=== PATIENT | female | born 1950 | race Caucasian/White ===

== ENCOUNTER → 2017-01-23 | Outpatient (CLI) | payer MEDICARE, BC ==
[~2017-01-23] MED LIST: ASPIRIN E.C. 8181 MG PO; CITALOPRAM10 MG PO; MULTIPLE VITAMI1 CAP PO; PREMPRO 0.625 M1 TAB PO
== END ==
LOC: MC.RAD 09:20
DX: Z12.31 Encounter for screening mammogram for malignant neoplasm of breast (principal)

== ENCOUNTER → 2018-01-22 | Outpatient (CLI) | payer MEDICARE, BC | LOC: MC.RAD 09:20 | DX: Z12.31 Encounter for screening mammogram for malignant neoplasm of breast (principal) ==

== ENCOUNTER → 2019-01-15 | Outpatient (CLI) | payer MEDICARE, BC | LOC: COL.RAD 14:54 | DX: R10.11 Right upper quadrant pain (principal); R63.4 Abnormal weight loss ==

== ENCOUNTER → 2019-02-13 | Outpatient (CLI) | payer MEDICARE, BC | LOC: COL.RAD 07:51 | DX: J18.1 Lobar pneumonia, unspecified organism (principal); R91.1 Solitary pulmonary nodule; R10.11 Right upper quadrant pain | CPT/HCPCS: Q9967 ==

== ENCOUNTER → 2019-03-18 | Outpatient (CLI) | payer MEDICARE, BC ==
[2019-03-18 13:10] LABS: ARTERIAL BLD GAS O2 SATURATION 94.9 % (92-100); ARTERIAL BLOOD GAS BASE EXCESS 1.9 (-2-2); ARTERIAL BLOOD GAS HCO3 26.6 meq/L (22-26); ARTERIAL BLOOD GAS PCO2 41.6 mmHg (35-45); ARTERIAL BLOOD GAS PO2 77.7 mmHg (80-100); ARTERIAL BLOOD GAS pH 7.42 (7.35-7.45)
== END ==
LOC: COL.LAB 12:29
PROVIDERS: Family Medicine
DX: J98.4 Other disorders of lung (principal)

== ENCOUNTER → 2019-03-25 | Outpatient (CLI) | payer MEDICARE, BC | LOC: COL.PUL 12:09 | DX: J98.4 Other disorders of lung (principal) ==

== ENCOUNTER 2019-04-08 11:13 | Emergency (ER) | payer MEDICARE, BC ==
[~2019-04-08] VITALS: Ht 167.6 cm; Wt 48.6 kg
[2019-04-08 11:20] VITALS: BP 116/59; TEMP 97.5
[2019-04-08 12:14] LABS: ALANINE AMINOTRANSFERASE 23 U/L (9-52); ALBUMIN 4.1 gm/dL (3.5-5.0); ALKALINE PHOSPHATASE 121 U/L (50-136); ANION GAP 9 mmol/L (7-16); AST,SGOT 42 U/L (15-37); BILIRUBIN,TOTAL 0.7 mg/dL (0.0-1.0); BLOOD UREA NITROGEN 20 mg/dL (7-17); CARBON DIOXIDE 28 mmol/L (22-30); CHLORIDE 107 mmol/L (98-107); CREATININE, serum 0.81 (0.52-1.25); GLUCOSE 86 mg/dL (74-106); POTASSIUM 3.9 mmol/L (3.4-5.0); SODIUM 143 mmol/L (137-145); TOTAL PROTEIN 7.2 gm/dL (6.4-8.2)
[2019-04-08 12:19] LABS: BASO # 0.1 (0.0-0.2); BASO % 1.3 % (0.0-2.0); EOS # 0.2 (0.0-0.7); EOS % 3.4 % (0-4.0); GRAN # 3.3 (1.4-6.5); GRAN % 53.3 % (42.2-75.2); HEMATOCRIT 45.7 % (37.0-47.0); LYMPH # 2.1 (1.2-3.4); LYMPH % 34.5 % (20.0-51.0); MEAN CELL VOLUME 96 fl (80.0-100.0); MEAN CORPUSCULAR HEMOGLOBIN 31 pg (27.0-31.0); MEAN CORPUSCULAR HGB CONC 33 g/dl (33.0-37.0); MEAN PLATELET VOLUME 10.1 fl (7.4-10.4); MONO # 0.4 (0.1-0.6); PLATELET COUNT 233 K/mm3 (130-400); RED BLOOD COUNT 4.77 M/mm3 (4.10-5.30); REDCELL DISTRIBUTION WIDTH-CV 12.4 % (11.5-14.5)
[2019-04-08 12:57] LABS: TROPONIN-I < 0.012 ng/mL (0.000-0.035)
[2019-04-08] MEDS ORDERED: ZOFRAN ODT4 MG PO (13:25)
[2019-04-08 13:40] VITALS: PULSE 66
[2019-04-08] MEDS ORDERED: FLONASE NASAL S16 GM NS (13:44)
[2019-04-08] MEDS ORDERED: STIOLTO RESPIMAT4 GM IH (13:47)
[2019-04-08] MEDS ORDERED: TYMLOS1.56 ML SQ (13:48)
== END 2019-04-08 13:40 | disposition home or self-care (01) ==
LOC: COL.ER 11:13
PROVIDERS: Emergency Medicine
DX: S06.0X0A Concussion without loss of consciousness, initial encounter (principal); R40.2410 Glasgow coma scale score 13-15, unspecified time; F17.210 Nicotine dependence, cigarettes, uncomplicated; Z79.82 Long term (current) use of aspirin; W19.XXXA Unspecified fall, initial encounter; W22.8XXA Striking against or struck by other objects, initial encounter; Y92.009 Unspecified place in unspecified non-institutional (private) residence as the place of occurrence of the external cause
CPT/HCPCS: J7030

== ENCOUNTER → 2019-08-16 | Outpatient (CLI) | payer MEDICARE, BC ==
[~2019-08-16] MED LIST changes: +FLONASE NASAL S16 GM NS; +STIOLTO RESPIMAT4 GM IH; +TYMLOS1.56 ML SQ; +ZOFRAN 4MG T4 MG/TAB PO; +ZOFRAN ODT4 MG PO
== END ==
LOC: COL.RAD 10:00
DX: J18.9 Pneumonia, unspecified organism (principal); I77.819 Aortic ectasia, unspecified site
CPT/HCPCS: Q9967

== ENCOUNTER → 2019-12-09 | Outpatient (CLI) | payer MEDICARE, BC | LOC: MC.RAD 12:58 | DX: Z12.31 Encounter for screening mammogram for malignant neoplasm of breast (principal) ==

== ENCOUNTER → 2021-02-05 | Outpatient (CLI) | payer MEDICARE, BC | LOC: MC.RAD 14:00 | DX: Z12.31 Encounter for screening mammogram for malignant neoplasm of breast (principal); N64.89 Other specified disorders of breast ==

== ENCOUNTER → 2021-02-11 | Outpatient (CLI) | payer MEDICARE, BC | LOC: MC.RAD 07:40 | DX: N64.89 Other specified disorders of breast (principal) ==

== ENCOUNTER → 2021-09-01 | Outpatient (CLI) | payer MEDICARE, BC | LOC: MC.RAD 14:00 | DX: R92.8 Other abnormal and inconclusive findings on diagnostic imaging of breast (principal); N64.89 Other specified disorders of breast ==

== ENCOUNTER 2022-01-24 12:50 | Outpatient (CLI) | payer MEDICARE, BC ==
[~2022-01-24] VITALS: Ht 167.6 cm; Wt 58.9 kg
[2022-01-24 13:22] VITALS: BP 110/52; PULSE 66; TEMP 97.5
[2022-01-24] MEDS ORDERED: KLONOPIN 0.5MG0.5 MG PO (13:26)
[2022-01-24] MEDS ORDERED: BREZTRI AEROS10.7 GM IH (13:26)
[2022-01-24] MEDS ORDERED: BELSOMRA15 MG PO (13:27)
[2022-01-24] MEDS ORDERED: ZITHROMAX 250M250 MG PO (13:27)
[2022-01-24] MEDS ORDERED: SINGULAIR 110 MG/TAB PO (13:28)
[2022-01-24] MEDS ORDERED: MASON NATURAL2000 IU PO (13:30)
[2022-01-24] MEDS ORDERED: PRENATAL FORMU1 EAC3 PO (13:30)
[2022-01-24] MEDS ORDERED: SSKI1 GM/ML PO (13:31)
[2022-01-24] MEDS ORDERED: MAGNESIUM200 MG PO (13:33)
[2022-01-24] MEDS ORDERED: [UNRECOGNIZED DRUG - SUPPLY] (13:33)
== END 2022-01-24 15:15 | disposition home or self-care (01) ==
LOC: EUO 12:50
DX: J44.9 Chronic obstructive pulmonary disease, unspecified (principal)
CPT/HCPCS: J2357

== ENCOUNTER 2022-02-04 13:36 | Inpatient (IN) | payer MEDICARE, BC ==
[~2022-02-04] VITALS: Ht 167.6 cm; Wt 58.4 kg
[~2022-02-04 13:36] MED LIST changes: +BELSOMRA15 MG PO; +BREZTRI AEROS10.7 GM IH; +KLONOPIN 0.5MG0.5 MG PO; +MAGNESIUM200 MG PO; +MASON NATURAL2000 IU PO; +PRENATAL FORMU1 EAC3 PO; +SINGULAIR 110 MG/TAB PO; +SSKI1 GM/ML PO; +ZITHROMAX 250M250 MG PO; +[UNRECOGNIZED DRUG - SUPPLY]
[2022-02-04 14:30] LABS: BASO # 0.1 K/mm3 (0.0-0.2); BASO % 1.5 % (0.0-2.0); EOS # 0.1 K/mm3 (0.0-0.7); EOS % 2.3 % (0.0-4.0); GRAN # 3.1 K/mm3 (1.4-6.5); GRAN % 60.3 % (42.2-75.2); LYMPH # 1.4 K/mm3 (1.2-3.4); LYMPH % 26.5 % (20.0-51.0); MEAN CELL VOLUME 101 fl (80.0-100.0); MEAN CORPUSCULAR HGB CONC 31 g/dl (33.0-37.0); MEAN PLATELET VOLUME 9.8 fl (7.4-10.4); MONO # 0.5 K/mm3 (0.1-0.6); PLATELET COUNT 342 K/mm3 (130-400); RED BLOOD COUNT 2.32 M/mm3 (4.10-5.30); REDCELL DISTRIBUTION WIDTH-CV 14.1 % (11.5-14.5)
[2022-02-04 14:31] LABS: HEMATOCRIT 23.4 % (37.0-47.0); HEMOGLOBIN 7.2 g/dl (12.5-16.0); MEAN CORPUSCULAR HEMOGLOBIN 31 pg (27-31)
[2022-02-04 15:18] LABS: ALBUMIN 3.7 gm/dL (3.4-4.8); BILIRUBIN,TOTAL 0.6 mg/dL (0.2-1.2); CREATININE, serum 0.8 mg/dL (0.57-1.11); POTASSIUM 4.1 mmol/L (3.5-4.5); TOTAL PROTEIN 6.2 gm/dL (6.2-8.1)
[2022-02-04 17:13] LABS: RETIC # 0.12 M/mm3 (0.02-0.16); RETIC % 4.7 % (0.5-3.52)
[2022-02-04 21:03] VITALS: BP 102/41; PULSE 83; TEMP 97.9
[2022-02-04] MEDS ORDERED: XOLAIR150 MG/1 M SQ (21:09)
[2022-02-04 22:22] LABS: HEMATOCRIT 23.1 % (37.0-47.0)
[2022-02-04 23:31] VITALS: BP 96/40; PULSE 76; TEMP 97.9
[2022-02-04 23:46] VITALS: BP 104/40; PULSE 69; TEMP 98
[2022-02-05] VITALS (15 sets, daily range): BP systolic 90–116; BP diastolic 38–56; PULSE 58–94; TEMP 97.5–98.4
[2022-02-05 06:37] LABS: HEMATOCRIT 26.6 % (37.0-47.0)
--- NOTE | 2022-02-05 08:04 | NUR ---
PT RESTING IN BED. MORNING PO MEDICATIONS HELD. SHIFT ASSESSMENT COMPLETED. CONSENT SIGNED AND PLACED ON CHART. DENIES ANY PAIN AT THIS TIME. NS INFUSING AT 125ML/HR. PT NPO AT THIS TIME. PT STATES SHE HAS NOT HAD A BM SINCE YESTERDAY IN THE ER. UPDATED PT ON POC. WILL CONTINUE TO MONITOR.
--- NOTE | 2022-02-05 09:18 | NUR ---
PT ARRIVED TO THE MEDICAL FLOOR AROUND 2030HRS TO ROOM 316. PT A&O X 4; O2 RA; B/P SOFT WITH PT COMPLAININNG OF PAIN AT TOP OF HER HEAD, THAT SHE DESCRIBED TINGLING IN HER HEAD, THAT SHE FEELS BEFORE SHE PASSES OUT. HOSPITALIST CALLED. HOSPITALIST CAME TO BEDSIDE TO ASSESS PT AND SPEAK WITH HER. PT DESCRIBED HAVING TUNNEL VISION. HOSPITALIST ORDERED PT BE GIVEN TYLENOL AND A UNIT OF BLOOD. PT GIVEN TYLENOL AND UNIT OF BLOOD TRANSFERRED SLOWLY WITH PT EXPERIENCING NO ISSUES. HOWEVER, B/P'S REMAINED SOFT THROUGHOUT. PT DENIED CHEST PAIN, PALPITATIONS, SOB, N,V,D OR DIZZINESS. ADMISSIONS ASSESSMENT AND MED REC COMPLETE. PT ORIENTED TO ROOM AND HOSPITAL POLICY. POC DISCUSSED WITH PT. PT VERBALIZED UNDERSTANDING. ALL QUESTIONS AND CONCERNS ADDRESSED. PT EXPRESSED NO ADDITIONAL NEEDS AT THIS TIME. CALL LIGHT WITHIN REACH.
--- NOTE | 2022-02-05 13:01 | NUR ---
PT RETURNED TO UNIT. DROWSY AT THIS TIME, TOLERATING PO INTAKE. VSS. CONTINUING TO MONITOR.
--- NOTE | 2022-02-05 14:38 | NUR ---
hot tamale worker met with patient to discuss discharge plan. Patient reports that she lives at home with her Avery ([phone]). Patient states that he had foot surgery 10 days ago and is not able to ambulate at time. Patient reports to being fully independent with her ADL's and does not utilize any DME to assist with mobility. Patient does utilize 2L of [place] oxygen at night that is managed through [facility]. PCP is Dr. Hopkins and she utilizes [facility] for medications with no cost difficulty. Patient does have a DPOA-HC esbalished listing her [facility]. Patient does have a son named Dandy Manriquez [phone] who lives in [place] as well. Patient is planning on returning home once medically ready. Discharge plan: Home
[2022-02-06 03:59] VITALS: BP 119/46; PULSE 57; TEMP 98
--- NOTE | 2022-02-06 04:59 | NUR ---
ASSESSMENT COMPLETE FOR THIS SHIFT. PT RESTING IN BED NAPPING. PT DENIED PAIN, PALPITATIONS, SOB, N,V,D OR DIZZINESS. PT STATED SHE FELT MUCH BETTER. A LITTLE AFTER 0200HRS, PT COMPLAINED OF RESTLESS LEGS AND NOT BEING ABOUT TO REALLY GET TO SLEEP. I OFFERED PT MELATONIN AND TOLD HER, I COULD SEE IF [facility]SHIFT COULD TALK TO THE PHYSICIANS IN THE MORNING ABOUT WHAT MEDS PT MAY BE ABLE TO RESUME OR ADD. PT FELT THE MELATONIN WORKED WELL FOR HER. PT EXPRESSED NO OTHER NEEDS AT THIS TIME. CALL LIGHT WITHIN REACH.
[2022-02-06 06:54] LABS: BASO # 0.1 K/mm3 (0.0-0.2); EOS # 0.3 K/mm3 (0.0-0.7); EOS % 4.2 % (0.0-4.0); GRAN # 3.4 K/mm3 (1.4-6.5); GRAN % 54.9 % (42.2-75.2); LYMPH # 1.9 K/mm3 (1.2-3.4); MEAN CELL VOLUME 101 fl (80.0-100.0); MEAN CORPUSCULAR HGB CONC 29 g/dl (33.0-37.0); MEAN PLATELET VOLUME 10.1 fl (7.4-10.4); MONO # 0.5 K/mm3 (0.1-0.6); MONO % 8.6 % (1.7-9.3); PLATELET COUNT 303 K/mm3 (130-400); RED BLOOD COUNT 2.79 M/mm3 (4.10-5.30); REDCELL DISTRIBUTION WIDTH-CV 17.2 % (11.5-14.5)
[2022-02-06 07:00] LABS: CALCIUM 7.9 mg/dL (8.4-10.2); CREATININE, serum 0.73 mg/dL (0.57-1.11); POTASSIUM 3.7 mmol/L (3.5-4.5)
[2022-02-06 07:05] VITALS: BP 115/47; PULSE 68; TEMP 97.6
--- NOTE | 2022-02-06 07:07 | NUR ---
THE PATIENT IS STABLE AT THIS TIME. DENIES ANY NEEDS.
[2022-02-06 07:22] LABS: HEMATOCRIT 28.2 % (37.0-47.0); HEMOGLOBIN 8.3 g/dl (12.5-16.0); MEAN CORPUSCULAR HEMOGLOBIN 30 pg (27-31)
--- NOTE | 2022-02-06 09:39 | NUR ---
THE PATIENT IS UP TO THE SHOWER. PHYSICIAN TO ROUND SOON, GI DOC HAS SEEN THE PATIENT AND CLEARED HER FOR DISCHARGE. NO OTHER CONCERNS.
[2022-02-06] MEDS ORDERED: NEXIUM 40MG40 MG PO (10:01)
--- NOTE | 2022-02-06 11:15 | NUR ---
THE PATIENT DISCHARGED AT THIS TIME. STABLE CONDITION, AMBULATED OUT WITH PCT. IV REMOVED, AND THE PATIENT VERBALIZED UNDERSTANDING OF THE DISCHARGE INFORMATION.
== END 2022-02-06 11:15 | disposition home or self-care (01) | DRG 378 ==
LOC: COL.ER 13:36 → MEDICAL 17:30
PROVIDERS: Personal Emergency Response Attendant; Physician Assistant
PROC: 0W3P8ZZ Control Bleeding in Gastrointestinal Tract, Via Natural or Artificial Opening Endoscopic (ICD-10-PCS; principal; 2022-02-06)
DX: K31.811 Angiodysplasia of stomach and duodenum with bleeding (principal); D62 Acute posthemorrhagic anemia; K92.1 Melena; J44.9 Chronic obstructive pulmonary disease, unspecified; G25.81 Restless legs syndrome; G47.00 Insomnia, unspecified; D50.9 Iron deficiency anemia, unspecified; Z88.0 Allergy status to penicillin; Z88.2 Allergy status to sulfonamides; Z86.73 Personal history of transient ischemic attack (TIA), and cerebral infarction without residual deficits; Z85.828 Personal history of other malignant neoplasm of skin; Z87.891 Personal history of nicotine dependence
CPT/HCPCS: 99222-AI; 99232-AI; 99239; C9113; J1756; J2704; J7030; J7050; P9016

== ENCOUNTER 2022-02-07 12:55 | Outpatient (CLI) | payer MEDICARE, BC ==
[~2022-02-07] VITALS: Ht 167.6 cm; Wt 59.0 kg
[~2022-02-07 12:55] MED LIST changes: +NEXIUM 40MG40 MG PO; +XOLAIR150 MG/1 M SQ
[2022-02-07 14:01] VITALS: BP 114/58; PULSE 80; TEMP 98
== END 2022-02-14 12:06 ==
LOC: EUO 12:55
DX: J44.9 Chronic obstructive pulmonary disease, unspecified (principal); Z79.899 Other long term (current) drug therapy
CPT/HCPCS: J2357

== ENCOUNTER → 2022-02-18 | Outpatient (CLI) | payer MEDICARE, BC | LOC: COL.RAD 09:27 | DX: K31.819 Angiodysplasia of stomach and duodenum without bleeding (principal) ==

== ENCOUNTER 2022-02-21 08:45 | Outpatient (CLI) | payer MEDICARE, BC ==
[~2022-02-21] VITALS: Ht 167.6 cm; Wt 58.1 kg
[2022-02-21 09:18] VITALS: BP 100/59; PULSE 63; TEMP 98.1
== END 2022-02-21 09:57 | disposition home or self-care (01) ==
LOC: EUO 08:45
DX: J44.9 Chronic obstructive pulmonary disease, unspecified (principal); Z79.899 Other long term (current) drug therapy
CPT/HCPCS: J2357

== ENCOUNTER → 2022-03-01 | Outpatient (CLI) | payer MEDICARE, BC | LOC: MC.RAD 13:59 | DX: N64.89 Other specified disorders of breast (principal); R92.8 Other abnormal and inconclusive findings on diagnostic imaging of breast ==

== ENCOUNTER 2022-03-07 08:53 | Outpatient (CLI) | payer MEDICARE, BC ==
[~2022-03-07] VITALS: Ht 167.6 cm; Wt 58.9 kg
[2022-03-07 09:27] VITALS: BP 100/64; PULSE 65; TEMP 97.9
== END 2022-03-07 09:56 | disposition home or self-care (01) ==
LOC: EUO 08:53
DX: J44.9 Chronic obstructive pulmonary disease, unspecified (principal); Z79.899 Other long term (current) drug therapy
CPT/HCPCS: J2357

== ENCOUNTER 2022-03-21 13:09 | Outpatient (CLI) | payer MEDICARE, BC ==
[~2022-03-21] VITALS: Ht 167.6 cm; Wt 59.7 kg
[2022-03-21 14:00] VITALS: BP 118/71; PULSE 61; TEMP 98.2
== END 2022-03-21 14:06 ==
LOC: EUO 13:09
DX: J45.909 Unspecified asthma, uncomplicated (principal); Z79.899 Other long term (current) drug therapy
CPT/HCPCS: J2357

== ENCOUNTER 2022-04-05 13:00 | Outpatient (CLI) | payer MEDICARE, BC ==
[~2022-04-05] VITALS: Ht 167.6 cm; Wt 60.0 kg
[2022-04-05 13:26] VITALS: BP 100/61; PULSE 90; TEMP 98.6
[2022-04-05] MEDS ORDERED: NEXIUM 40MG40 MG PO (13:34)
--- NOTE | 2022-04-05 13:50 | NUR ---
Pt ambulates out from dept with steady gait, no complaints at time of departure.
== END 2022-04-05 13:50 | disposition home or self-care (01) ==
LOC: EUO 13:00
DX: J45.909 Unspecified asthma, uncomplicated (principal); Z79.899 Other long term (current) drug therapy
CPT/HCPCS: J2357

== ENCOUNTER 2022-04-19 13:01 | Outpatient (CLI) | payer MEDICARE, BC ==
[~2022-04-19] VITALS: Ht 167.6 cm; Wt 60.0 kg
[2022-04-19 13:53] VITALS: BP 121/65; PULSE 84; TEMP 98.1
== END 2022-04-19 15:00 | disposition home or self-care (01) ==
LOC: EUO 13:01
DX: J45.50 Severe persistent asthma, uncomplicated (principal)
CPT/HCPCS: J2357

== ENCOUNTER 2022-05-03 13:06 | Outpatient (CLI) | payer MEDICARE, BC ==
[~2022-05-03] VITALS: Ht 167.6 cm; Wt 60.8 kg
[2022-05-03] MEDS ORDERED: ASPIRIN E.C. 8181 MG PO (13:49)
[2022-05-03] MEDS ORDERED: VITAMIN E1000 U/CAP PO (13:50)
[2022-05-03 13:51] VITALS: BP 111/70; PULSE 80; TEMP 97.9
== END 2022-05-03 17:19 | disposition home or self-care (01) ==
LOC: EUO 13:06
DX: J45.50 Severe persistent asthma, uncomplicated (principal)
CPT/HCPCS: J2357

== ENCOUNTER 2022-05-18 15:47 | Outpatient (CLI) | payer MEDICARE, BC ==
[~2022-05-18] VITALS: Ht 167.6 cm; Wt 61.3 kg
[~2022-05-18 15:47] MED LIST changes: +VITAMIN E1000 U/CAP PO
[2022-05-18 16:17] VITALS: BP 110/52; PULSE 92; TEMP 98.5
== END 2022-05-18 16:18 ==
LOC: EUO 15:47
DX: J45.50 Severe persistent asthma, uncomplicated (principal)
CPT/HCPCS: J2357

== ENCOUNTER 2022-06-01 14:59 | Outpatient (CLI) | payer MEDICARE, BC ==
[~2022-06-01] VITALS: Ht 167.6 cm; Wt 61.0 kg
[2022-06-01 15:20] VITALS: BP 92/54; PULSE 75; TEMP 97.8
== END 2022-06-01 16:03 | disposition home or self-care (01) ==
LOC: EUO 14:59
DX: J45.40 Moderate persistent asthma, uncomplicated (principal)
CPT/HCPCS: J2357

== ENCOUNTER 2022-06-15 10:42 | Outpatient (CLI) | payer MEDICARE, BC ==
[~2022-06-15] VITALS: Ht 167.6 cm; Wt 61.1 kg
[2022-06-15 11:35] VITALS: BP 119/56; PULSE 78; TEMP 97.4
== END 2022-06-15 12:43 | disposition home or self-care (01) ==
LOC: EUO 10:42
DX: J45.909 Unspecified asthma, uncomplicated (principal); Z79.899 Other long term (current) drug therapy
CPT/HCPCS: J2357

== ENCOUNTER 2022-06-29 09:55 | Outpatient (CLI) | payer MEDICARE, BC ==
[~2022-06-29] VITALS: Ht 167.6 cm; Wt 61.5 kg
[2022-06-29 10:11] VITALS: BP 110/64; PULSE 76; TEMP 98.1
== END 2022-06-29 12:42 | disposition home or self-care (01) ==
LOC: EUO 09:55
DX: J45.50 Severe persistent asthma, uncomplicated (principal)
CPT/HCPCS: J2357

== ENCOUNTER 2022-07-27 10:05 | Outpatient (CLI) | payer MEDICARE, BC ==
[~2022-07-27] VITALS: Ht 167.6 cm; Wt 63.3 kg
[~2022-07-27 10:05] MED LIST changes: +COMPLETE MULTI1 TAB PO; -PRENATAL FORMU1 EAC3 PO
[2022-07-27 10:35] VITALS: BP 126/75; PULSE 71; TEMP 98.5
[2022-07-27] MEDS ORDERED: MERIBIN5 MG PO (10:42)
== END 2022-07-27 11:58 | disposition home or self-care (01) ==
LOC: EUO 10:05
DX: J45.909 Unspecified asthma, uncomplicated (principal)
CPT/HCPCS: J2357

== ENCOUNTER 2022-08-10 13:10 | Outpatient (CLI) | payer MEDICARE, BC ==
[~2022-08-10] VITALS: Ht 167.6 cm; Wt 63.8 kg
[~2022-08-10 13:10] MED LIST changes: +MERIBIN5 MG PO
[2022-08-10 13:49] VITALS: BP 121/73; PULSE 78; TEMP 97.6
== END 2022-08-10 15:17 | disposition home or self-care (01) ==
LOC: EUO 13:10
DX: J45.50 Severe persistent asthma, uncomplicated (principal)
CPT/HCPCS: J2357

== ENCOUNTER 2022-10-25 10:39 | Outpatient (CLI) | payer MEDICARE, BC ==
[~2022-10-25] VITALS: Ht 167.6 cm; Wt 65.0 kg
[2022-10-25 11:02] VITALS: BP 115/74; PULSE 70; TEMP 97.8
[2022-11-03] MEDS ORDERED: EVENITY (2210 MG/2.3 SQ (11:14)
== END 2022-10-26 16:58 ==
LOC: EUO 10:39
DX: J45.50 Severe persistent asthma, uncomplicated (principal)
CPT/HCPCS: J2357

== ENCOUNTER 2022-12-01 07:44 | Outpatient (CLI) | payer MEDICARE, BC ==
[~2022-12-01] VITALS: Ht 167.6 cm; Wt 65.3 kg
[~2022-12-01 07:44] MED LIST changes: +EVENITY (2210 MG/2.3 SQ
[2022-12-01 08:39] VITALS: BP 117/72; PULSE 83; TEMP 98.4
--- NOTE | 2022-12-01 08:45 | NUR ---
Pt tolerated injections without issue. She exits dept with steady gait.
== END 2022-12-01 08:45 | disposition home or self-care (01) ==
LOC: EUO 07:44
DX: J45.20 Mild intermittent asthma, uncomplicated (principal); Z79.899 Other long term (current) drug therapy
CPT/HCPCS: J2357; J3111

== ENCOUNTER 2022-12-15 09:07 | Outpatient (CLI) | payer MEDICARE, BC ==
[2022-12-15 09:23] VITALS: BP 118/59; PULSE 73; TEMP 98.1
[2022-12-15] MEDS ORDERED: CIPRO 250MG TA250 MG PO (09:39)
== END 2022-12-15 09:43 | disposition home or self-care (01) ==
LOC: EUO 09:07
DX: J45.40 Moderate persistent asthma, uncomplicated (principal)
CPT/HCPCS: J2357

== ENCOUNTER 2022-12-29 14:08 | Outpatient (CLI) | payer MEDICARE, BC ==
[~2022-12-29] VITALS: Ht 167.6 cm; Wt 67.2 kg
[~2022-12-29 14:08] MED LIST changes: +CIPRO 250MG TA250 MG PO
[2022-12-29 14:32] VITALS: BP 94/55; PULSE 75; TEMP 97.9
[2022-12-29 14:47] VITALS: BP 94/55; PULSE 75; TEMP 97.9
--- NOTE | 2022-12-29 15:24 | NUR ---
pt discharged at approx 1510. she tolerated her three subcut injections well and her VS remained within normal limits during injections. she ambulated independently to her car and was free from complaints and concerns upon discharge.
== END 2022-12-29 15:10 | disposition home or self-care (01) ==
LOC: EUO 14:08
DX: J45.40 Moderate persistent asthma, uncomplicated (principal); M81.0 Age-related osteoporosis without current pathological fracture
CPT/HCPCS: J2357; J3111

== ENCOUNTER 2023-01-26 07:46 | Outpatient (CLI) | payer MEDICARE, BC ==
[~2023-01-26] VITALS: Ht 167.6 cm; Wt 66.7 kg
[2023-01-26 07:57] VITALS: BP 115/69; PULSE 66; TEMP 97.7
--- NOTE | 2023-01-26 08:29 | NUR ---
Pt came in for xolair and evenity injections. Tolerated these well. Next appoitnment has been scheduled. Pt exits unit.
--- NOTE | 2023-01-26 08:42 | NUR ---
Nursing orientee's documentation reviewed.
== END 2023-01-26 08:28 | disposition home or self-care (01) ==
LOC: EUO 07:46
DX: J45.50 Severe persistent asthma, uncomplicated (principal)
CPT/HCPCS: J2357; J3111

== ENCOUNTER 2023-02-24 08:23 | Outpatient (CLI) | payer MEDICARE, BC ==
[~2023-02-24] VITALS: Ht 167.6 cm; Wt 65.8 kg
[2023-02-24 07:55] VITALS: BP 97/56; PULSE 76; TEMP 97.6
--- NOTE | 2023-02-24 08:35 | NUR ---
Pt tolerated injections without issue. She exits dept with steady gait.
== END 2023-02-24 08:35 | disposition home or self-care (01) ==
LOC: EUO 08:23
DX: M81.0 Age-related osteoporosis without current pathological fracture (principal); J45.50 Severe persistent asthma, uncomplicated
CPT/HCPCS: J2357; J3111

== ENCOUNTER 2023-03-10 14:04 | Outpatient (CLI) | payer MEDICARE, BC ==
[~2023-03-10] VITALS: Ht 167.6 cm; Wt 66.0 kg
[2023-03-10 14:25] VITALS: BP 113/74; PULSE 77; TEMP 97.6
[2023-03-10] MEDS ORDERED: Omalizumab 150 MG/1 ML SYRINGE SQ SCH (14:30)
[2023-08-25] MEDS ORDERED: MOBIC 7.5MG7.5 MG PO (10:24)
[2023-09-08] MEDS ORDERED: MOBIC15 MG PO (14:00)
[2024-01-16] MEDS ORDERED: FERRO-TIME325 MG PO (14:04)
== END 2023-03-10 15:58 ==
LOC: EUO 14:04
DX: J45.50 Severe persistent asthma, uncomplicated (principal)
CPT/HCPCS: J2357

== ENCOUNTER 2023-07-14 15:28 | Outpatient (RCR) | payer MEDICARE, BC ==
[~2023-07-14] VITALS: Ht 167.6 cm; Wt 70.9 kg
[2023-07-14 15:42] VITALS: BP 124/61; PULSE 82; TEMP 97.5
== END 2023-07-14 16:00 | disposition home or self-care (01) ==
LOC: EUO 15:28
DX: M81.0 Age-related osteoporosis without current pathological fracture (principal); J44.9 Chronic obstructive pulmonary disease, unspecified
CPT/HCPCS: J2357; J3111

== ENCOUNTER 2023-09-22 08:08 | Outpatient (CLI) | payer MEDICARE, BC ==
[~2023-09-22] VITALS: Ht 167.6 cm; Wt 70.6 kg
[~2023-09-22 08:08] MED LIST changes: +MOBIC 7.5MG7.5 MG PO; +MOBIC15 MG PO
[2023-09-22 08:49] VITALS: BP 140/78; PULSE 73; TEMP 97.1
== END 2023-09-22 09:00 ==
LOC: EUO 08:08
DX: J44.9 Chronic obstructive pulmonary disease, unspecified (principal); J45.50 Severe persistent asthma, uncomplicated
CPT/HCPCS: J2357

== ENCOUNTER 2023-10-09 11:01 | Outpatient (CLI) | payer MEDICARE, BC ==
[~2023-10-09] VITALS: Ht 167.6 cm; Wt 69.4 kg
[2023-10-09 11:18] VITALS: BP 123/58; PULSE 78; TEMP 98.4
== END 2023-10-09 11:51 | disposition home or self-care (01) ==
LOC: EUO 11:01
DX: J45.50 Severe persistent asthma, uncomplicated (principal); J44.9 Chronic obstructive pulmonary disease, unspecified
CPT/HCPCS: J2357

== ENCOUNTER 2023-10-23 10:27 | Outpatient (CLI) | payer MEDICARE, BC ==
[~2023-10-23] VITALS: Ht 167.6 cm; Wt 69.7 kg
[2023-10-23 10:43] VITALS: BP 114/60; PULSE 79; TEMP 97.8
[2023-10-23] MEDS ORDERED: Omalizumab 150 MG/1 ML SYRINGE SQ ONE (11:00)
== END 2023-10-23 11:01 | disposition home or self-care (01) ==
LOC: EUO 10:27
DX: J44.9 Chronic obstructive pulmonary disease, unspecified (principal); J45.50 Severe persistent asthma, uncomplicated
CPT/HCPCS: J2357

== ENCOUNTER → 2023-12-14 | Outpatient (CLI) | payer MEDICARE, BC ==
[~2023-12-14] VITALS: Ht 167.6 cm; Wt 69.2 kg
[2023-12-14 13:25] VITALS: BP 127/74; PULSE 85; TEMP 97.4
[2023-12-14 14:08] VITALS: BP 147/76; PULSE 76
== END ==
LOC: COL.RAD 12:45
DX: E04.1 Nontoxic single thyroid nodule (principal)
CPT/HCPCS: 32106

== ENCOUNTER 2023-12-18 07:57 | Outpatient (CLI) | payer MEDICARE, BC ==
[~2023-12-18] VITALS: Ht 167.6 cm; Wt 68.9 kg
[2023-12-18 08:06] VITALS: BP 117/67; PULSE 81; TEMP 97.6
[2023-12-18] MEDS ORDERED: Omalizumab 150 MG/1 ML SYRINGE SQ ONE (08:15)
--- NOTE | 2023-12-18 08:23 | NUR ---
Pt tolerated xolair without issue. She exits dept with steady gait.
== END 2023-12-18 08:25 | disposition home or self-care (01) ==
LOC: EUO 07:57
DX: J45.50 Severe persistent asthma, uncomplicated (principal); J44.9 Chronic obstructive pulmonary disease, unspecified
CPT/HCPCS: J2357

== ENCOUNTER → 2023-12-20 | Outpatient (CLI) | payer MEDICARE | LOC: COL.RAD 10:43 | DX: N28.1 Cyst of kidney, acquired (principal); K76.9 Liver disease, unspecified ==

== ENCOUNTER 2024-05-17 14:57 | Outpatient (CLI) | payer MEDICARE, BC ==
[~2024-05-17] VITALS: Ht 167.6 cm; Wt 57.0 kg
[~2024-05-17 14:57] MED LIST changes: +D3-5050000 IU PO; +FERRO-TIME325 MG PO; +NATURAL MAGNES200 MG PO
[2024-05-17] MEDS ORDERED: Omalizumab 150 MG/1 ML SYRINGE SQ ONE (15:15)
[2024-05-17 15:20] VITALS: BP 114/69; PULSE 66; TEMP 98.2
--- NOTE | 2024-05-17 15:37 | NUR ---
Pt tolerated xolair without issue. Pt exits dept with steady gait.
== END 2024-05-17 15:37 | disposition home or self-care (01) ==
LOC: EUO 14:57
DX: J44.9 Chronic obstructive pulmonary disease, unspecified (principal); Z79.899 Other long term (current) drug therapy
CPT/HCPCS: J2357

== ENCOUNTER 2024-06-04 15:59 | Outpatient (CLI) | payer MEDICARE, BC ==
[~2024-06-04] VITALS: Ht 167.6 cm; Wt 64.4 kg
[2024-06-04] MEDS ORDERED: Omalizumab 150 MG/1 ML SYRINGE SQ SCH (16:30)
[2024-06-04 16:42] VITALS: BP 109/69; PULSE 76; TEMP 97.8
== END 2024-06-04 16:46 | disposition home or self-care (01) ==
LOC: EUO 15:59
DX: J44.9 Chronic obstructive pulmonary disease, unspecified (principal); J45.50 Severe persistent asthma, uncomplicated
CPT/HCPCS: J2357

== ENCOUNTER → 2024-06-04 | Outpatient (CLI) | payer MEDICARE, BC | LOC: MC.RAD 09:53 | DX: Z12.31 Encounter for screening mammogram for malignant neoplasm of breast (principal) | CPT/HCPCS: J2357 ==

== ENCOUNTER 2024-07-16 11:00 | Outpatient (CLI) | payer MEDICARE, BC ==
[~2024-07-16] VITALS: Ht 167.6 cm; Wt 64.9 kg
[2024-07-16] MEDS ORDERED: Omalizumab 150 MG/1 ML SYRINGE SQ ONE (11:15)
[2024-07-16 11:21] VITALS: BP 120/61; PULSE 74; TEMP 97.7
== END 2024-07-16 11:23 ==
LOC: EUO 11:00
DX: J44.9 Chronic obstructive pulmonary disease, unspecified (principal); J45.50 Severe persistent asthma, uncomplicated; Z79.899 Other long term (current) drug therapy
CPT/HCPCS: J2357

== ENCOUNTER 2024-07-30 10:05 | Outpatient (CLI) | payer MEDICARE, BC ==
[~2024-07-30] VITALS: Ht 167.6 cm; Wt 64.3 kg
[2024-07-30 09:59] VITALS: BP 124/78; PULSE 64; TEMP 97.9
[~2024-07-30 10:05] MED LIST changes: +Omalizumab 150 MG/1 ML SYRINGE SQ ONE
--- NOTE | 2024-07-30 10:15 | NUR ---
Pt tolerated xolair without issue. She exits dept with steady gait, free of complaints.
== END 2024-07-30 10:15 | disposition home or self-care (01) ==
LOC: EUO 10:05
DX: J44.9 Chronic obstructive pulmonary disease, unspecified (principal); J45.50 Severe persistent asthma, uncomplicated
CPT/HCPCS: J2357